=== PATIENT | female | born 2000 | race Caucasian/White ===

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

== ENCOUNTER 2018-12-10 18:10 | Emergency (ER) | payer OTHER ==
[2018-12-10 18:15] VITALS: BP 123/83
--- NOTE | 2018-12-10 18:40 | EDPHY ---
H & P Stated Complaint: hit head Time Seen by Provider: 12/10/18 18:33 HPI/ROS: HPI: This is a 18-year-old female who presents with Chief Complaint: Hit head Location: Head Quality: Injury Duration: Yesterday around 8:00 p.m. Signs and Symptoms: no fever, no nausea, no vomiting, no photophobia, no noise sensitivity, no neck stiffness, no ear pain, no tinnitus, no nasal congestion, no sinus pressure, no weakness, no radiation, no aura, + dull global headache Timing: Acute Severity: [id number] Context: Patient presents with hit in head injury that occurred yesterday evening around 8:00 p.m. While playing volleyball. Patient reports that she was hit in the right side of her head near her mandaen by of volleyball and then she fell on the ground hitting the left mandaen on the floor. Denies LOC, nausea , vomiting, dizziness, headache, amnesia. She was ambulatory at the scene and continued to play the game. Today while in class, she started to developed a global headache that she describes as mild and dull accompanied by nausea. She reports that it was difficult for her to read the board. She had a mild concussion diagnosed in March of 2018. She denies any memory deficits, speech difficulties, ambulatory deficits. Modifying Factors: None Comment: ROS: A comprehensive 10 system review of systems is otherwise negative aside from elements mentioned in the history of present illness. MEDICAL/SURGICAL/SOCIAL HISTORY: Medical history: Generally healthy. Takes oral control pills Surgical history: Foot surgery Social history: Student at [employer]. Originally from [place]. Family history noncontributory. CONSTITUTIONAL: Well-developed, well-nourished young adult white female, awake and alert, no obvious distress HEENT: Atraumatic and normocephalic, PERRL, EOMI. Nares patent; no rhinorrhea; no nasal mucosal edema. Tympanic membranes clear. No tympanic membrane perforation. Oropharynx clear, no exudate and moist pink mucosa. Airway patent. No lymphadenopathy. No meningismus. Cardiovascular: Normal S1/S2, regular rate, regular rhythm, without murmur rub or gallop. PULMONARY/CHEST: Symmetrical and nontender. Clear to auscultation bilaterally. Good air movement. No accessory muscle usage. ABDOMEN: Soft, nondistended, nontender, no rebound, no guarding, no peritoneal signs, no masses or organomegaly. No CVAT. EXTREMITIES: 2/2 pulses, strength 5/5, no deformities, no clubbing, no cyanosis or edema. NEUROLOGICAL: no focal neuro deficits. GCS 15. Cranial nerves 2-12 grossly intact. Normal Romberg testing. No pronator drift. SKIN: Warm and dry, no erythema. no rash. Good capillary refill. Source: Patient Exam Limitations: No limitations - Personal History Current Tetanus/Diphtheria Vaccine: Yes Current Tetanus Diphtheria and Acellular Pertussis (TDAP): Yes - Medical/Surgical History Hx Asthma: No Hx Chronic Respiratory Disease: No Hx Diabetes: No Hx Cardiac Disease: No Hx Renal Disease: No Hx Cirrhosis: No Hx Alcoholism: No Hx HIV/AIDS: No Hx Splenectomy or Spleen Trauma: No Other PMH: left foot surgery - Social History Smoking Status: Never smoked Constitutional: Initial Vital Signs Temperature (C) 36.9 C 12/10/18 18:14 Heart Rate 97 12/10/18 18:14 Respiratory Rate 16 12/10/18 18:14 Blood Pressure 123/83 H 12/10/18 18:14 O2 Sat (%) 98 12/10/18 18:14 O2 Delivery Mode Room Air Allergies/Adverse Reactions: No Known Allergies Allergy (Unverified 12/10/18 18:13) Home Medications: Medication Instructions Recorded Birthcontrol 11/19/17 Linzess 11/19/17 Ondansetron Odt [Zofran Odt 4 mg 4 mg PO Q4 PRN #12 tab 12/10/18 (*)] Medical Decision Making ED Course/Re-evaluation: Vital signs reviewed and stable upon arrival. No systemic signs. No neurological deficits and no LOC Based on nexus protocol, head CT imaging not indicated Patient is showing signs of mild concussion and verbal and written concussion precautions discussed thoroughly Given a prescription for Zofran and school excuse No signs of neurovascular compromise/tenting of skin/compartment syndrome/ extremities and joints examined above and below area of concern and are neurovascularly intact. This patient was seen under the supervision of my secondary supervising physician. I evaluated and cared for this patient with attending. Differential Diagnosis: Head injury including but not limited to concussion, skull fracture, intraparenchymal contusion, subarachnoid, subdural and epidural hematoma. Departure - Departure Disposition: Home, Routine, Self-Care Clinical Impression: Closed head injury with concussion Qualifiers: Encounter type: initial encounter Loss of consciousness presence/duration: without LOC Qualified Code(s): S06.0X0A - Concussion without loss of consciousness, initial encounter Condition: Good Instructions: Head Injury (ED), Concussion (ED) Additional Instructions: You sustained a closed head injury and mild concussion and it is recommended that you observe concussion precautions. Please do not participate in any contact sports or moderate and strenuous activity until all symptoms have resolved or cleared by PCP/Concussion Clinic. Take Tylenol 650 mg every 4 hours and/or Ibuprofen 600 mg every 8 hours with food as needed for pain/headache. Take Zofran every 4-6 hours as needed for nausea, vomiting. Consume a minimum of 8-10 glasses of water or electrolyte fluid replacement drinks that include Gatorade, Powerade, Pedialyte. You are to be closely monitored and observed for the 12 hr following initial injury time. Please follow-up with primary care provider in 5-7 days. If symptoms last longer than 10-14 days, please follow-up with Dr. Domingo in the concussion Clinic. Return to the ER immediately if you have progressive headaches, neurologic deficits, gait abnormality, visual disturbance, slurred speech, or any other symptom that concerns you. Referrals: RASHAD HOUSER [Other] - As per Instructions Sheree Domingo MD [Medical Doctor] - As per Instructions Stand Alone Forms: School Excuse Prescriptions: Ondansetron Odt [Zofran Odt 4 mg (*)] 4 mg PO Q4 PRN #12 tab PRN Reason: Nausea/Vomiting, Use 1st
== END 2018-12-10 18:47 | disposition home or self-care (01) ==
DX: S06.0X0A Concussion without loss of consciousness, initial encounter (principal); W21.06XA Struck by volleyball, initial encounter; Y93.68 Activity, volleyball (beach) (court)